=== PATIENT | female | born 1945 | race Caucasian/White ===

== ENCOUNTER → 2017-05-24 | Outpatient (CLI) | payer MEDICARE ==
[~2017-05-24] MED LIST: ACTOS 30 MG TAB30 MG; CIPROFLOXACIN500 M1 PO; GLUCOPHAGE500 MG; GLUCOTROL5 MG; LANTUS SC; LISINOPRIL40 MG; LOPRESSOR25; NORCO 5-325 TA1 EACH PO; PERCOCET 5-3251 EACH PO; PHENERGAN 25 MG25 M1 PO; VYTORIN 10-401 EACH; ZOFRAN ODT4 MG PO
== END ==
LOC: M.RAD 08:55
DX: Z12.31 Encounter for screening mammogram for malignant neoplasm of breast (principal)

== ENCOUNTER → 2017-06-03 | Outpatient (CLI) | payer MEDICARE | LOC: M.RAD 14:45 | DX: I51.7 Cardiomegaly (principal); J98.11 Atelectasis ==

== ENCOUNTER → 2017-11-09 | Outpatient (CLI) | payer MEDICARE | LOC: M.RAD 08:33 | DX: M85.89 Other specified disorders of bone density and structure, multiple sites (principal); I10 Essential (primary) hypertension; E11.9 Type 2 diabetes mellitus without complications; E78.5 Hyperlipidemia, unspecified; Z78.0 Asymptomatic menopausal state ==

== ENCOUNTER → 2018-05-23 | Outpatient (CLI) | payer OTHER | LOC: M.RAD 06:38 | DX: Z12.31 Encounter for screening mammogram for malignant neoplasm of breast (principal) ==

== ENCOUNTER 2019-06-01 00:24 | Observation (INO) | payer OTHER ==
[2019-06-01] VITALS (11 sets, daily range): BP systolic 142–224; BP diastolic 64–128
[~2019-06-01] VITALS: Ht 165.1 cm; Wt 83.6 kg
[2019-06-01] MEDS ORDERED: GLIPIZIDE 10 MG10 MG PO (01:11)
[2019-06-01] MEDS ORDERED: FENOFIBRATE150 MG PO (01:12)
[2019-06-01] MEDS ORDERED: CALCIUM + D3 E1 EACH PO (01:12)
[2019-06-01] MEDS ORDERED: ONE-A-DAY WOMENS PO (01:13)
[2019-06-01] MEDS ORDERED: LANTUS SUBQ (01:14)
[2019-06-01] MEDS ORDERED: PLAQUENIL200 MG PO (01:15)
[2019-06-01] MEDS ORDERED: METHOTREXATE 22.5 M1 PO (01:15)
[2019-06-01] MEDS ORDERED: NORVASC 2.5 MG2.5 M1 PO (01:16)
[2019-06-01] MEDS ORDERED: SULFASALAZINE500 M4 PO (01:16)
[2019-06-01] MEDS ORDERED: EZALLOR SPRINKL10 MG PO (01:17)
[2019-06-01 01:39] LABS: ABSOLUTE BASOPHILS 0.1 thou/uL (0.0-0.2); ABSOLUTE EOSINOPHILS 0.1 thou/uL (0.0-0.7); ABSOLUTE LYMPHOCYTES 1.3 thou/uL (0.8-5.3); ABSOLUTE MONOCYTES 0.8 thou/uL (0.0-1.2); ABSOLUTE NEUTROPHILS 5.5 thou/uL (1.6-8.1); BASOPHILS 0.8 %; EOSINOPHILS 0.6 %; HEMATOCRIT 35.6 % (37.0-47.0); HEMOGLOBIN 12.1 gm/dL (12.0-15.0); LYMPHOCYTES 16.7 %; MCH 34.7 pg (26.0-34.0); MCHC 34.1 g/dL (28.0-37.0); MCV 101.7 fL (80.0-100.0); MONOCYTES 10.4 %; MPV 9.2 fl. (7.2-11.1); NUCLEATED RBCS 0 /100WBC; PLATELET COUNT* 260 thou/uL (150-400); POLYS 71.5 %; RDW-CV 13.9 % (10.5-14.5); WBC 7.7 thou/uL (4.0-11.0)
[2019-06-01 01:45] LABS: CALCIUM 9.3 mg/dL (8.5-10.1); CREATININE 0.8 mg/dL (0.6-1.3); INR 1.2; POTASSIUM 3.4 mmol/L (3.5-5.1); PROTIME 11.9 Seconds (9.20-11.50)
[2019-06-01 01:55] LABS: ALBUMIN 3.8 g/dL (3.4-5.0); TOTAL BILIRUBIN 0.5 mg/dL (<0.1-1.0); TOTAL PROTEIN 6.9 g/dL (6.4-8.2)
[2019-06-01 02:23] LABS: URINE BILIRUBIN NEGATIVE (Negative); URINE BLOOD NEGATIVE (Negative); URINE CLARITY CLEAR; URINE COLOR YELLOW; URINE GLUCOSE-RANDOM NEGATIVE (Negative); URINE KETONES NEGATIVE (Negative); URINE LEUKOCYTES-REFLEX NEGATIVE (Negative); URINE NITRITE-REFLEX NEGATIVE (Negative); URINE PROTEIN 1+ (Negative); URINE SPECIFIC GRAVITY 1.015 (1.005-1.030); URINE UROBILINOGEN 0.2 E.U./dl (0.2-1.0)
--- NOTE | 2019-06-01 06:30 | NUR ---
PATIENT ARRIVED ON UNIT AT APPROX 0330. ALERT AND ORIENTED TIMES FOUR. SOME DIZZINESS WITH MOVEMENT. INFORMED PATIENT OF CALL LIGHT AND TO USE IF SHE WAS WANTING TO TRANSFER. NO COMPLAINTS OF PAIN NOTED. NEUROSCIENCE SPECIALIST AND HOURLY ROUNDING COMLETED DOCUMENTED.
[2019-06-01 11:39] LABS: CHOLESTEROL 167 mg/dL (<200); HDL CHOLESTEROL 63 mg/dL (>40); LDL CHOLESTEROL 89 mg/dL (<100); TC:HDL 2.7 Ratio (Not establshd); TRIGLYCERIDE 77 mg/dL (<150); VLDL 15 mg/dL (<40)
[2019-06-01 11:40] LABS: SERUM ASSESSMENT Clear
--- NOTE | 2019-06-01 12:50 | EKG ---
[place] [address] ELECTROCARDIOGRAM REPORT Name: MEET LAM Room: [address] M.R.#: [id number] Admission: 06/01/19 Attend Phys: Bela Zimmer Discharge: Date of : 45 Date of Service: 06/01/19 0030 Report #: [id number] THIS REPORT FOR: //name// [facility] ED Test Date: 2019-06-01 Test Time: 00:30:53 Pat Name: MEET LAM Department: Room: [facility] Gender: F Field Supervisor: : 1945 Requested By: Tamie Owen Order Number: [id number] MD: Silver Meadows Measurements Intervals [place] Rate: 97 P: 51 WY: 220 QRS: 14 QRSD: 90 T: 108 QT: 333 QTc: 423 Interpretive Statements Sinus tachycardia Supraventricular bigeminy Prolonged [place] interval Inferior infarct, old Consider anterior infarct No previous ECG available for comparison Electronically Signed On 06-01-2019 12:49:32 CDT by Silver Meadows [email or web address] <ELECTRONICALLY SIGNED> By: Silver Meadows MD, FACC 06/01/19 1249 0030 0030 Silver Meadows MD, [facility] /EPI
--- NOTE | 2019-06-01 13:03 | 2DMMODE ---
[place] [address] 2 D/M-MODE ECHOCARDIOGRAM Name: MEET LAM Room: [address] M.R.#: [id number] Admission: 06/01/19 Attend Phys: Bela Zimmer Discharge: Date of : 45 Date of Service: 06/01/19 1302 Report #: [id number] THIS REPORT FOR: cc: Landen Sheppard MD, Matthew W. MD Holkins, John M. MD [facility] ~ APPROVED REPORT Study performed: 06/01/2019 10:51:43 EXAM: Comprehensive 2D, Doppler, and color-flow Echocardiogram Patient Location: In-Patient Room #: [facility] Status: routine BSA: 1.91 HR: 75 bpm BP: 189/93 mmHg Rhythm: NSR Other Information Study Quality: Good Indications CAD Hypertension/HDD 2D Dimensions IVSd: 13.83 (7-11mm) LVOT Diam: 19.63 (18-24mm) LVDd: 46.84 mm PWd: 11.84 (7-11mm) Ascending Ao: 31.87 (22-36mm) LVDs: 26.86 (25-40mm) Aortic Root: 33.03 mm Volumes Left Atrial Volume (Systole) LA ESV Index: 28.50 mL/m2 Aortic Valve AoV Peak Luis Daniel.: 1.80 m/s AO Peak Gr.: 13.00 mmHg LVOT Max P.48 mmHg AO Mean Gr.: 7.17 mmHg LVOT Mean P.82 mmHg LVOT Max V: 1.17 m/s AO V2 VTI: 35.72 cm LVOT Mean V: 0.78 m/s CARLEE (VTI): 2.21 cm2 LVOT V1 VTI: 26.03 [place] [address] 2 D/M-MODE ECHOCARDIOGRAM Name: MEET LAM Room: [address] M.R.#: [id number] Admission: 06/01/19 Attend Phys: Bela Zimmer Discharge: Date of : 45 Date of Service: 06/01/19 1302 Report #: [id number] Bartholomew: 4.04 m/s2 AI PHT: 337.60 ms Mitral Valve E/A Ratio: 0.74 MV Decel. Time: 273.50 ms MV E Max Luis Daniel.: 0.66 m/s MV PHT: 79.31 ms MVA (PHT): 2.77 cm2 TDI E/Lateral E': 6.60 E/Medial E': 8.25 Medial E' Luis Daniel.: 0.08 m/s Lateral E' Luis Daniel.: 0.10 m/s Pulmonary Valve PV Peak Luis Daniel.: 1.23 m/s PV Peak Gr.: 6.04 mmHg Tricuspid Valve RAP Estimate: 5.00 mmHg TR Peak Gr.: 23.33 mmHg RVSP: 28.00 mmHg PA Pressure: 28.00 mmHg Left Ventricle The left ventricle is normal size. There is normal LV segmental wall motion. Mild concentric left ventricular hypertrophy. Left ventricular systolic function is normal. The left ventricular ejection fraction is within the normal range. LVEF is 60-65%. Grade I - abnormal relaxation pattern. Right Ventricle The right ventricle is normal size. The right ventricular systolic function is normal. Atria The left atrium size is normal. The right atrium size is normal. Aortic Valve Mild aortic valve sclerosis. Mild aortic regurgitation. There is no aortic valvular stenosis. Mitral Valve Mild mitral annular calcification. Trace mitral regurgitation. No evidence of mitral [place] [address] 2 D/M-MODE ECHOCARDIOGRAM Name: MEET LAM ANN Room: [address] M.R.#: [id number] Admission: 06/01/19 Attend Phys: Bela Zimmer Discharge: Date of : 45 Date of Service: 06/01/19 1302 Report #: [id number] Tricuspid Valve The tricuspid valve is normal in structure. Trace tricuspid regurgitation. No pulmonary hypertension. Pulmonic Valve The pulmonary valve is normal in structure. There is no pulmonic valvular regurgitation. Great Vessels The aortic root is normal in size. IVC is normal in size and collapses >50% with inspiration. Pericardium There is no pericardial effusion. <Conclusion> The left ventricle is normal size. Mild concentric left ventricular hypertrophy. Left ventricular systolic function is normal. The left ventricular ejection fraction is within the normal range. LVEF is 60-65%. Grade I - abnormal relaxation pattern. The right ventricle is normal size. The left atrium size is normal. Mild aortic valve sclerosis. Mild aortic regurgitation. There is no aortic valvular stenosis. Mild mitral annular calcification. Trace mitral regurgitation. No evidence of mitral valve stenosis. The tricuspid valve is normal in structure. IVC is normal in size and collapses >50% with inspiration. There is no pericardial effusion. There is normal LV segmental wall motion. <ELECTRONICALLY SIGNED> By: Silver Meadows MD, FACC 06/01/19 1302 1302 1302 Silver Meadows MD, FACC /INF
--- NOTE | 2019-06-01 16:05 | NUR ---
Pt is A&O. Normally active and independent. No DME. No hx of HH or SNF. Goal is to dc to her dtr's home for a few days. No needs anticipated.
[2019-06-02 04:10] VITALS: BP 148/51
[2019-06-02 04:17] LABS: CALCIUM 8.7 mg/dL (8.5-10.1); CREATININE 0.9 mg/dL (0.6-1.3); MAGNESIUM 1.7 mg/dL (1.8-2.4); POTASSIUM 3.8 mmol/L (3.5-5.1)
--- NOTE | 2019-06-02 07:24 | NUR ---
PT CARE ASSUMED AT 1930. SAT MAINTAINED IN RA. ALERT AND ORIENTED X4. DENIES PAIN AND SOB. CALL LIGHT WITHIN REACH AND BED IN LOW POSITION. HOURLY ROUNDING DONE FOR PT SAFETY.
[2019-06-02 07:51] VITALS: BP 141/58
[2019-06-02 07:53] VITALS: BP 139/69; BP 150/69
[2019-06-02] MEDS ORDERED: HYDRALAZINE 2525 MG PO (08:50)
[2019-06-02] MEDS ORDERED: CARVEDILOL12.5 MG PO (08:50)
[2019-06-02] MEDS ORDERED: ASPIR 8181 MG PO (08:50)
[2019-06-02] MEDS ORDERED: HYDROCHLOROTHIA25 M1 PO (08:50)
[2019-06-02 09:33] VITALS: BP 139/69
[2019-06-02 09:36] VITALS: BP 139/69
--- NOTE | 2019-06-02 12:04 | NUR ---
PT DC TO HOME WITH DAUGHTER AND NURSING STAFF BY WHEELCHAIR AT 1145. IV OUT. PT STABLE UP ON DISCHARGE. PAPER SCRIPTS AND DISCHARGE PAPER WORK GIVEN. PERSONAL ITEMS SENT WITH PT.
== END 2019-06-02 11:50 | disposition home or self-care (01) ==
LOC: M.ERS 00:24 → M.2W 02:46 → M.TBA-ER 02:46 → M.2W 02:46
PROVIDERS: Internal Medicine; Personal Emergency Response Attendant; Registered Nurse; ADMIT Internal Medicine
DX: R42 Dizziness and giddiness (principal); I10 Essential (primary) hypertension; I25.10 Atherosclerotic heart disease of native coronary artery without angina pectoris; E78.5 Hyperlipidemia, unspecified; E11.9 Type 2 diabetes mellitus without complications; I65.22 Occlusion and stenosis of left carotid artery; M19.90 Unspecified osteoarthritis, unspecified site; I16.0 Hypertensive urgency; E87.6 Hypokalemia

== ENCOUNTER 2019-06-11 20:50 | Inpatient (IN) | payer OTHER ==
[~2019-06-11] VITALS: Ht 165.1 cm; Wt 86.0 kg
[~2019-06-11 20:50] MED LIST changes: +ASPIR 8181 MG PO; +CALCIUM + D3 E1 EACH PO; +CARVEDILOL12.5 MG PO; +EZALLOR SPRINKL10 MG PO; +FENOFIBRATE150 MG PO; +GLIPIZIDE 10 MG10 MG PO; +HYDRALAZINE 2525 MG PO; +HYDROCHLOROTHIA25 M1 PO; +LANTUS SUBQ; +METHOTREXATE 22.5 M1 PO; +NORVASC 2.5 MG2.5 M1 PO; +ONE-A-DAY WOMENS PO; +PLAQUENIL200 MG PO; +SULFASALAZINE500 M4 PO
[2019-06-11 20:54] VITALS: BP 221/81
[2019-06-11 21:27] LABS: ABSOLUTE EOSINOPHILS 0.1 thou/uL (0.0-0.7); ABSOLUTE LYMPHOCYTES 1.7 thou/uL (0.8-5.3); ABSOLUTE MONOCYTES 0.7 thou/uL (0.0-1.2); BASOPHILS 0.5 %; EOSINOPHILS 0.8 %; HEMATOCRIT 36.3 % (37.0-47.0); HEMOGLOBIN 12.3 gm/dL (12.0-15.0); LYMPHOCYTES 19.6 %; MCH 34.3 pg (26.0-34.0); MCHC 33.8 g/dL (28.0-37.0); MCV 101.6 fL (80.0-100.0); MONOCYTES 8.6 %; MPV 9.2 fl. (7.2-11.1); NUCLEATED RBCS 0 /100WBC; PLATELET COUNT* 305 thou/uL (150-400); POLYS 70.5 %; RBC 3.57 mil/uL (4.20-5.00); RDW-CV 13.5 % (10.5-14.5); WBC 8.6 thou/uL (4.0-11.0)
[2019-06-11 21:29] LABS: CALCIUM 9.9 mg/dL (8.5-10.1); CREATININE 1.5 mg/dL (0.6-1.3); POTASSIUM 3.6 mmol/L (3.5-5.1)
[2019-06-11 21:31] LABS: INR 1.2
[2019-06-11 21:40] LABS: ALBUMIN 4.1 g/dL (3.4-5.0); MAGNESIUM 1.9 mg/dL (1.8-2.4); TOTAL BILIRUBIN 0.4 mg/dL (<0.1-1.0); TOTAL PROTEIN 7.6 g/dL (6.4-8.2)
[2019-06-11 23:41] VITALS: BP 162/70
[2019-06-11 23:45] VITALS: BP 193/62
[2019-06-12 04:34] VITALS: BP 105/44
--- NOTE | 2019-06-12 06:11 | NUR ---
RECEIVED REPORT FROM SENIOR MEDIA PLANNERANTHONY BRIGHT AT 2340. PT ARRIVED TO UNIT AT 2345. PT ORIENTED TO ROOM AND CALL LIGHT. NURSING ASSESSMENT COMPLETED. PT DENIES PAIN THIS SHIFT. CALL LIGHT WITHIN REACH. HIGH FALL PRECAUTIONS IN PLACE. HOURLY ROUNDING COMPLETED.
[2019-06-12 08:00] VITALS: BP 125/59
[2019-06-12 09:16] LABS: URINE BILIRUBIN NEGATIVE (Negative); URINE BLOOD NEGATIVE (Negative); URINE CLARITY CLEAR; URINE COLOR YELLOW; URINE GLUCOSE-RANDOM NEGATIVE (Negative); URINE KETONES NEGATIVE (Negative); URINE LEUKOCYTES-REFLEX NEGATIVE (Negative); URINE NITRITE-REFLEX POSITIVE (Negative); URINE PROTEIN NEGATIVE (Negative); URINE SPECIFIC GRAVITY 1.015 (1.005-1.030); URINE UROBILINOGEN 0.2 E.U./dl (0.2-1.0)
[2019-06-12 09:21] LABS: BACTERIA-REFLEX >30 Many /HPF (None Seen); CASTS None Seen /LPF (None Seen); CRYSTALS None Seen /LPF (None Seen); SQUAMOUS 0-3 Few /LPF (0-3); URINE RBC 0-2 Rare /HPF (0-2); URINE WBC-REFLEX 0-5 Rare /HPF (0-5)
--- NOTE | 2019-06-12 11:00 | EKG ---
[place] [address] ELECTROCARDIOGRAM REPORT Name: MEET LAM Room: [address] ADM IN [facility].#: [id number] Admission: 06/11/19 Attend Phys: Desmond Tapia Discharge: Date of : 45 Date of Service: 06/11/192105 Report #: [id number] THIS REPORT FOR: //name// [facility] ED Test Date: 2019-06-11 Test Time: 21:06:20 Pat Name: MEET LAM Department: Room: [facility] Gender: F Microbiology Laboratory Manager: : 1945 Requested By: Jaqueline Irene Order Number: [id number] MD: Silver Meadows Measurements Intervals [place] Rate: 78 P: -56 MA: 159 QRS: 10 QRSD: 116 T: 88 QT: 402 QTc: 458 Interpretive Statements Sinus or ectopic atrial rhythm LVH with IVCD and secondary repol abnrm Inferior infarct, old Compared to ECG 06/01/2019 00:30:53 Ectopic atrial rhythm now posssible Intraventricular conduction delay now present Left ventricular hypertrophy now present Early repolarization now present Sinus tachycardia no longer present Atrial premature complex(es) no longer present First degree AV block no longer present Myocardial infarct finding still present Electronically Signed On 06-12-2019 10:58:59 CDT by Silver Meadows [email or web address] <ELECTRONICALLY SIGNED> By: Silver Meadows MD, [facility] 06/12/19 1058 05 05 Silver Meadows MD, [facility] /EPI
[2019-06-12 11:30] VITALS: BP 106/47
--- NOTE | 2019-06-12 12:09 | NUR ---
ASSUMED PT CARE REPORT RECEIVED FROM NURSE. PT IS AOX4. ON RA. TRACING SR 1ST AV BLOCK ON GAS APPLIANCE ADJUSTER. CARB CONTROL DIET. PT HAS POOR APPETITE. THIS NURSE FED PT PART OF HER BREAKFAST THIS AM. PT OUT OF BED AND WALKED ON HALLWAY WITH THIS NURSE. THEN PT PLACED IN CHAIR FOR LUNCH. ACCUCHECK. BLOOD SUGAR LEVEL [address] NOTIFIED. D5 1/2 NS STOPPED AND NS STARTED. VSS. BLOOD PRESSURE TO BE CHECKED AT 1300 ORDERED POST STOPPPING THE D5 1/2 NS. CALL LIGHT WITHIN REACH. DAVID CONTINUE TO MONITOR PT
--- NOTE | 2019-06-12 15:02 | NUR ---
Pt is A&O. Known to this CM from previous hospital stay earlier this month. Pt states that she dc to her daughter's home, went home for a few days, but prior to this hospital stay was back staying with her dtr. Pt plans to return to her dtr's home at dc. No DME. No hx of HH or SNF, Pt declining HH at dc. Following for dispo.
[2019-06-12 16:00] VITALS: BP 151/64
[2019-06-12 21:00] VITALS: BP 107/56
[2019-06-13 00:09] VITALS: BP 153/69
[2019-06-13 02:07] LABS: GLYCOHEMOGLOBIN (HGB A1C) 4.6 % (4.8-5.6)
[2019-06-13 04:10] VITALS: BP 149/60
--- NOTE | 2019-06-13 05:59 | NUR ---
PATIENT SLEPT WELL THROUGHOUT MOST OF THE NIGHT. VSS ON RA. MEDICATIONS GIVEN ORDERED AND ASSESSMENT CHARTED. PATIENT UP WITH SBA WITH WALKER TO THE BATHROOM. IV IN RIGHT FOREARM-NS @ 100ML/HR. PATIENT INSTRUCTED TO USE CALL LIGHT WHEN NEEDING ASSISTANCE. HOURLY ROUNDS MADE. WILL CONTINUE WITH PLAN OF CARE AND NURSING TO MONITOR.
[2019-06-13 06:15] LABS: ABSOLUTE BASOPHILS 0.1 thou/uL (0.0-0.2); ABSOLUTE EOSINOPHILS 0.1 thou/uL (0.0-0.7); ABSOLUTE LYMPHOCYTES 2.5 thou/uL (0.8-5.3); ABSOLUTE MONOCYTES 0.7 thou/uL (0.0-1.2); ABSOLUTE NEUTROPHILS 2.8 thou/uL (1.6-8.1); EOSINOPHILS 1.2 %; HEMATOCRIT 29.2 % (37.0-47.0); MCH 34.9 pg (26.0-34.0); MCV 102.5 fL (80.0-100.0); MPV 9.2 fl. (7.2-11.1); NUCLEATED RBCS 0 /100WBC; PLATELET COUNT* 235 thou/uL (150-400); POLYS 45.8 %; RBC 2.85 mil/uL (4.20-5.00); RDW-CV 13.4 % (10.5-14.5); WBC 6.2 thou/uL (4.0-11.0)
[2019-06-13 06:21] LABS: HEMOGLOBIN 9.9 gm/dL (12.0-15.0)
[2019-06-13 06:24] LABS: CALCIUM 8.2 mg/dL (8.5-10.1); CREATININE 0.9 mg/dL (0.6-1.3); POTASSIUM 3.5 mmol/L (3.5-5.1)
[2019-06-13 07:36] LABS: C-PEPTIDE 2.8 ng/mL (1.1-4.4); INSULIN 11.7 uIU/mL (2.6-24.9)
[2019-06-13 07:52] VITALS: BP 121/73
[2019-06-13 12:11] VITALS: BP 130/43
[2019-06-13 16:27] VITALS: BP 183/89
--- NOTE | 2019-06-13 17:02 | NUR ---
ASSUMED PT CARE REPORT RECEIVED FROM NURSE. PT IS AOX4. ON RA. 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 ACCUCHECK ACHS . IV FLUID INFUSING AT 100 PER HOUR. IV ANTIBIOTICS HANGED. METFORMIN GIVEN AT LUNCH TIME DUE TO HIGH BLOOD SUGAR. BLOOD SUGAR TRENDING DOWN AT DINER TIME. WILL GIVE METFORMIN NEEDED. IV FLUID STOPPED AT ORDERED. SEE E APR. PT AMBULATED IN HALLWAY ACCOMPANIED BY THIS NURSE WITH STAND BY ASSISYT. DENIES PAIN. NO FURTHER COMPLAINT. PT HAS GOOD APPETITE. THIS NURSE SOPKE WITH PT'S DAUGHTER AND GAVE UPDATE. CALL LIGHT WITHIN REACH. WILL CONTINUE TO MONITOR PT
[2019-06-13 20:30] VITALS: BP 148/78
[2019-06-14] VITALS: BP 131/51
[2019-06-14 04:00] VITALS: BP 149/67
[2019-06-14 07:30] VITALS: BP 166/72
[2019-06-14 10:15] VITALS: BP 164/70
[2019-06-14] MEDS ORDERED: MACROBID 100 M100 M2 PO (11:03)
[2019-06-14] MEDS ORDERED: METFORMIN HCL500 M3 PO (11:04)
[2019-06-14] MEDS ORDERED: LEVO-T25 MCG PO (11:05)
[2019-06-14 11:10] VITALS: BP 164/70
[2019-06-14 11:58] VITALS: BP 164/70
--- NOTE | 2019-06-14 11:58 | NUR ---
PT GIVEN DISCHARGE INFORMATION, CARE NOTES, AND PRESCRIPTIONS. IV REMOVED. PT GIVEN CLOTHES TO GO HOME WITH. FALL RISK PRECAUTIONS IN PLACE. HOURLY ROUNDING COMPLETED. HEART MONITOR TAKEN OFF. BLOOD SUGAR CHECKED. PT LEFT VIA WHEELCHAIR WITH NURSING STAFF TO HOME WITH DAUGHTER.
== END 2019-06-14 11:59 | disposition home or self-care (01) | DRG 682 ==
LOC: M.ERS 20:50 → M.TBA-ER 22:27 → M.2W 22:27
PROVIDERS: Emergency Medicine; Internal Medicine; ADMIT Internal Medicine
DX: N17.9 Acute kidney failure, unspecified (principal); G93.41 Metabolic encephalopathy; N39.0 Urinary tract infection, site not specified; E11.649 Type 2 diabetes mellitus with hypoglycemia without coma; E86.0 Dehydration; E78.00 Pure hypercholesterolemia, unspecified; I25.10 Atherosclerotic heart disease of native coronary artery without angina pectoris; M13.80 Other specified arthritis, unspecified site; E03.9 Hypothyroidism, unspecified; D53.9 Nutritional anemia, unspecified; F50.89 Other specified eating disorder; Z95.1 Presence of aortocoronary bypass graft; Z79.899 Other long term (current) drug therapy; Z79.82 Long term (current) use of aspirin; Z79.84 Long term (current) use of oral hypoglycemic drugs; Z79.4 Long term (current) use of insulin; Z88.0 Allergy status to penicillin; Z68.31 Body mass index [BMI] 31.0-31.9, adult; Z87.891 Personal history of nicotine dependence

== ENCOUNTER → 2019-07-18 | Outpatient (CLI) | payer OTHER ==
[~2019-07-18] MED LIST changes: +LEVO-T25 MCG PO; +MACROBID 100 M100 M2 PO; +METFORMIN HCL500 M3 PO
== END ==
LOC: M.RAD 05-26 07:45
DX: Z12.31 Encounter for screening mammogram for malignant neoplasm of breast (principal)

== ENCOUNTER → 2019-09-20 | Outpatient (CLI) | payer OTHER ==
[2019-09-20 09:37] LABS: POTASSIUM 4.4 mmol/L (3.5-5.1)
== END ==
LOC: M.LAB 09:13
PROVIDERS: ATTEND Anesthesiology
DX: Z01.812 Encounter for preprocedural laboratory examination (principal); Z11.59 Encounter for screening for other viral diseases; E11.9 Type 2 diabetes mellitus without complications; R63.4 Abnormal weight loss; R63.0 Anorexia; E87.6 Hypokalemia

== ENCOUNTER → 2019-09-26 | Outpatient (CLI) | payer OTHER ==
[2019-09-26 07:51] LABS: POTASSIUM 4.3 mmol/L (3.5-5.1)
== END ==
LOC: M.LAB 07:19
PROVIDERS: ATTEND Anesthesiology
DX: E11.9 Type 2 diabetes mellitus without complications (principal); E87.6 Hypokalemia

== ENCOUNTER → 2019-10-05 | Outpatient (CLI) | payer OTHER ==
[2019-10-05 07:31] LABS: ALBUMIN 3.7 g/dL (3.4-5.0); CALCIUM 8.6 mg/dL (8.5-10.1); POTASSIUM 3.7 mmol/L (3.5-5.1); TOTAL BILIRUBIN 0.3 mg/dL (<0.1-1.0)
== END ==
LOC: M.LAB 06:53 → M.CT 08:00
PROVIDERS: ATTEND Internal Medicine Gastroenterology
DX: K57.30 Diverticulosis of large intestine without perforation or abscess without bleeding (principal); R63.4 Abnormal weight loss; M25.78 Osteophyte, vertebrae; I70.0 Atherosclerosis of aorta

== ENCOUNTER → 2019-10-11 | Outpatient (CLI) | payer OTHER ==
[~2019-10-11] MED LIST changes: +FOLIC ACID0.4 MG PO; +ZOCOR20 MG PO
== END ==
LOC: M.LAB 13:29
PROVIDERS: ATTEND Surgery Vascular Surgery
DX: Z01.812 Encounter for preprocedural laboratory examination (principal); Z11.59 Encounter for screening for other viral diseases; I65.22 Occlusion and stenosis of left carotid artery

== ENCOUNTER 2019-10-17 06:14 | Inpatient (IN) | payer OTHER ==
[~2019-10-17] VITALS: Ht 167.6 cm; Wt 83.5 kg
[2019-10-17] VITALS (17 sets, daily range): BP systolic 72–158; BP diastolic 26–89
[2019-10-17 06:52] LABS: HEMATOCRIT 31.7 % (37.0-47.0); HEMOGLOBIN 10.8 gm/dL (12.0-15.0); MCH 36.6 pg (26.0-34.0); MCHC 33.9 g/dL (28.0-37.0); MCV 107.9 fL (80.0-100.0); MPV 8.6 fl. (7.2-11.1); RBC 2.94 mil/uL (4.20-5.00); RDW-CV 13.8 % (10.5-14.5); WBC 7.3 thou/uL (4.0-11.0)
[2019-10-17 06:59] LABS: CALCIUM 9.4 mg/dL (8.5-10.1); POTASSIUM 3.6 mmol/L (3.5-5.1)
--- NOTE | 2019-10-17 09:39 | OP ---
[address] [address] OPERATIVE REPORT Name: MEET LAM Room: [address] IN M.R.#: [id number] Admission: 10/17/19 Attend Phys: Huey Murcia MD Discharge: Date of : 45 Report #: [id number] THIS REPORT FOR: //name// cc: Tra Sparks Reuel M. DO ~ THIS REPORT FOR: //name// CC: Tra Murcia DATE OF SERVICE: 10/17/2019 PREOPERATIVE DIAGNOSIS: Severe left internal carotid artery stenosis. POSTOPERATIVE DIAGNOSIS: Severe left internal carotid artery stenosis. PROCEDURES: 1. Left carotid endarterectomy with patch angioplasty. 2. Intraoperative ultrasound with interpretation. FINDINGS ON ULTRASOUND: 1. Normal waveform and velocity identified within the common and internal carotid arteries. 2. Patent flow identified on color flow imaging within the external carotid artery. 3. No flaps or defects identified in apple-scale imaging. SURGEON: Huey Murcia MD ELECTROCARDIOGRAPH OPERATOR: Dr. Swann, resident year 4. COMPLICATIONS: None. ESTIMATED BLOOD LOSS: 100 mL. SPECIMEN: Includes plaque. INDICATIONS FOR PROCEDURE: The patient is a very pleasant 74-year-old white female who has severe left internal carotid artery stenosis. We plan to proceed with carotid endarterectomy today. Informed consent was obtained from the patient with risks including but not limited to bleeding, pain, , heart attack, stroke, cranial nerve injury. The patient understood these risks and was agreeable to proceed. DESCRIPTION OF PROCEDURE: The patient was taken to the OR and placed in supine position. Left neck and chest were prepped and draped [place] [address] OPERATIVE REPORT Name: MEET LAM Room: [place] [address] ADM IN .R.#: [id number] Admission: 10/17/19 Attend Phys: Huey Murcia MD Discharge: Date of : 45 Report #: [id number] The patient received appropriate preoperative antibiotics. The patient was systemically heparinized throughout the critical portions of the procedure. I created a transverse incision in the patient's left neck. Sharp and blunt dissections were carried down along the anterior border of the sternocleidomastoid muscle. The facial veins were divided between ties and clips. The carotid sheath was entered. The common carotid artery as well as the branches of internal and external carotid artery were dissected out and controlled. I created a longitudinal arteriotomy from the common carotid artery onto the internal carotid artery. I placed a 10 shunt without difficulty. I performed endarterectomy in standard fashion using a Frierson elevator and a pair of pickups. We were able to get a feathered edge leading into the internal carotid artery. We performed eversion endarterectomy of the external carotid artery. We took our time to remove the bits and pieces of plaque from posterior wall. We closed the arteriotomy with a bovine pericardial patch and a running 6-0 Prolene suture. At the completion of the repair, there was adequate hemostasis and excellent blood flow into the internal and external carotid arteries. We performed intraoperative ultrasound. Please see the findings above. Irrigated the wound bed with antibiotic saline. I corrected the heparin with protamine. Controlled bleeding as needed with electrocautery, ties, clips and Sanket. We closed the wound in multiple layers using 2-0 Vicryl, 3-0 Vicryl and Monocryl for the skin. Incision was dressed with Dermabond. The patient was taken alert and awake to recovery room in good condition, neurologically intact. <ELECTRONICALLY SIGNED> By: Huey Murcia MD 10/17/19 0939 0922 0932Huey Murcia MD /nt
--- NOTE | 2019-10-17 15:30 | NUR ---
PT WANTING TO VOID BUT NOT ABLE TO. BLADDER SCAN REVEALED >513 MLS. MATA'S CATH INSERTED WITHOUT DIFFICULTY.
--- NOTE | 2019-10-17 18:30 | NUR ---
PT RECEIVED FROM PACU AT 1445, A&O x4. DOPAMINE SUPPORT CONTD, CURRENTLY AT 3 MCG/KG/MIN. VSS. DIET ADVANCED TO CARB CONTROLLED. TOLERATED WELL. ICE PACK APPLIED TO INCISION SITE, WHICH IS CLEAN, DRY AND INTACT. DENIES PAIN.
[2019-10-18] VITALS (16 sets, daily range): BP systolic 67–138; BP diastolic 45–71
[2019-10-18 04:21] LABS: HEMATOCRIT 25.4 % (37.0-47.0); MCH 36.4 pg (26.0-34.0); MCV 107.1 fL (80.0-100.0); MPV 8.6 fl. (7.2-11.1); RBC 2.38 mil/uL (4.20-5.00); RDW-CV 14.1 % (10.5-14.5)
[2019-10-18 04:49] LABS: POTASSIUM 3.5 mmol/L (3.5-5.1)
--- NOTE | 2019-10-18 04:49 | NUR ---
VITALS STABLE, AFEBRILE. PT COMPLAINS OF ACCESS SITE NECK PAIN, DENIES ANY OTHER PAIN. UNABLE TO TITRATE DOPAMINE OFF. OTHERWISE UNEVENTFUL NIGHT. Q2 TURNS FOR SKIN INTEGRITY. CALL LIGHT WITHIN REACH. WILL CONTINUE MONITORING.
[2019-10-18 04:52] LABS: HEMOGLOBIN 8.6 gm/dL (12.0-15.0)
--- NOTE | 2019-10-18 12:38 | NUR ---
Nutrition: Pt admitted with Lt carotid stenosis. Discharging home today. Consult for wt change. Spoke with RN. Pt mentioned some gradual wt loss. Per Rolith, usual wt has been ~164# since at least May. Current wt is 164#. Tolerating CHO controled diet. No concerns about wt loss at this time. Meds, PMHx, labs noted. Low risk.
--- NOTE | 2019-10-19 15:07 | PATH ---
[facility] [address] [place] [address] PATHOLOGY RPT PROCEDURE Name: MEET PATEL Room: [address] IN M.R.#: [id number] Admission: 10/17/19 Date of : 45 Discharge: 10/18/19 Report #: [id number] Path Case #: [id number] LCA Accession Number: [id number] . 01 Material submitted: . carotid body - CAROTID PLAQUE, LEFT. Modifiers: left . 01 Clinician provided ICD-10: I65.29 . 01 Clinical history: . LEFT CAROTID STENOSIS . 02 Diagnosis: Carotid plaque left: - Fibrointimal atherosclerotic plaque with calcification. (ARLIN:pit 10/19/2019) QTP 10/19/2019 1230 Local . 02 Electronically signed: . Dannie Hall MD, Pathologist NPI- [id number] . 01 Gross description: . The specimen is received in formalin, labeled "Meet Patel, carotid plaque left" and consists of a rubbery to calcified segment of yellow-jones tissue measuring 1.9 x 0.8 x 0.6 cm. The specimen displays a focally stenotic lumen and is entirely submitted in A1 following decalcification. (SDY; 10/18/2019) SYU/SYU 10/18/2019 1349 Local . 02 Pathologist provided ICD-10: I65.22 . 02 CPT . 294917, [id number] Specimen Comment: A courtesy copy of this report has been sent to [phone] Specimen Comment: 1974 Specimen Comment: Report sent to / DR DORAN Performed at: [address], [place], [place] [id number] MD Sahil Randall MD Phone: [phone] Performed at: [address] [place] [address] [address] [place], [place] [id number] MD Dannie Hall MD Phone: [phone]
== END 2019-10-18 14:11 | disposition home or self-care (01) | DRG 38 ==
LOC: M.TBA 06:14 → M.ICU 06:14 → M.PRE 09:26 → M.ICU 13:31
PROVIDERS: Surgery Vascular Surgery; ADMIT Internal Medicine; ATTEND Internal Medicine
DX: I65.22 Occlusion and stenosis of left carotid artery (principal); R71.0 Precipitous drop in hematocrit; E78.00 Pure hypercholesterolemia, unspecified; E11.9 Type 2 diabetes mellitus without complications; I25.10 Atherosclerotic heart disease of native coronary artery without angina pectoris; E78.5 Hyperlipidemia, unspecified; M06.9 Rheumatoid arthritis, unspecified; I95.9 Hypotension, unspecified; I10 Essential (primary) hypertension; E03.9 Hypothyroidism, unspecified; Z79.4 Long term (current) use of insulin; Z79.84 Long term (current) use of oral hypoglycemic drugs; Z79.899 Other long term (current) drug therapy; Z95.1 Presence of aortocoronary bypass graft; Z87.891 Personal history of nicotine dependence; Z88.0 Allergy status to penicillin

== ENCOUNTER 2020-01-25 15:06 | Emergency (ER) | payer OTHER ==
[~2020-01-25] VITALS: Ht 162.6 cm; Wt 73.0 kg
[2020-01-25] MEDS ORDERED: ROSUVASTATIN CA10 MG PO (15:17)
[2020-01-25 15:27] LABS: ABSOLUTE BASOPHILS 0.1 thou/uL (0.0-0.2); ABSOLUTE EOSINOPHILS 0.1 thou/uL (0.0-0.7); ABSOLUTE LYMPHOCYTES 1.5 thou/uL (0.8-5.3); ABSOLUTE MONOCYTES 0.9 thou/uL (0.0-1.2); ABSOLUTE NEUTROPHILS 4.1 thou/uL (1.6-8.1); BASOPHILS 0.9 %; EOSINOPHILS 1.3 %; HEMATOCRIT 33.7 % (37.0-47.0); HEMOGLOBIN 11.2 gm/dL (12.0-15.0); LYMPHOCYTES 23.2 %; MCH 35.3 pg (26.0-34.0); MCHC 33.3 g/dL (28.0-37.0); MCV 105.8 fL (80.0-100.0); MPV 8.3 fl. (7.2-11.1); NUCLEATED RBCS 0 /100WBC; PLATELET COUNT* 274 thou/uL (150-400); POLYS 61.6 %; RBC 3.18 mil/uL (4.20-5.00); RDW-CV 15.7 % (10.5-14.5); WBC 6.7 thou/uL (4.0-11.0)
[2020-01-25 15:34] LABS: CALCIUM 8.9 mg/dL (8.5-10.1); CREATININE 1.1 mg/dL (0.6-1.3); POTASSIUM 4.2 mmol/L (3.5-5.1)
[2020-01-25 15:38] LABS: INR 1.1; PROTIME 11.9 Seconds (9.20-11.50)
[2020-01-25 15:45] LABS: ALBUMIN 3.6 g/dL (3.4-5.0); TOTAL BILIRUBIN 0.3 mg/dL (<0.1-1.0); TOTAL PROTEIN 7.3 g/dL (6.4-8.2)
[2020-01-25 16:05] VITALS: BP 204/83
--- NOTE | 2020-01-27 11:31 | EKG ---
[place] [address] ELECTROCARDIOGRAM REPORT Name: MEET LAM Room: [facility]#: [id number] Admission: 01/25/20 Attend Phys: Discharge: 01/25/20 Date of : 45 Date of Service: 01/25/20 1518 Report #: [id number] THIS REPORT FOR: //name// [facility] ED Test Date: 2020-01-25 Test Time: 15:18:02 Pat Name: MEET LAM Department: Room: Gender: F Automation Test Engineer: JACINTO : 1945 Requested By: Ramirez Carrington Order Number: [id number] MD: Eladio Nation Measurements Intervals [place] Rate: 80 P: 104 WY: 165 QRS: 28 QRSD: 96 T: 51 QT: 398 QTc: 460 Interpretive Statements Sinus rhythm Anterior infarct, old Artifact in lead(s) I,II,III,aVR,aVL,aVF,V3 and baseline wander in lead(s) I,II,aVR Compared to ECG 06/11/2019 21:06:20 Left ventricular hypertrophy no longer present Myocardial infarct finding still present Electronically Signed On 01-27-2020 11:31:37 WATER TANKER DRIVER by Eladio Nation [email or web address] <ELECTRONICALLY SIGNED> By: Eladio Nation MD, FACC 01/27/20 1131 1518 Eladio Nation MD, FAC /EPI
== END 2020-01-25 16:05 | disposition home or self-care (01) ==
LOC: M.ERS 15:06
PROVIDERS: Family Medicine
DX: E11.649 Type 2 diabetes mellitus with hypoglycemia without coma (principal); E78.00 Pure hypercholesterolemia, unspecified; E11.9 Type 2 diabetes mellitus without complications; I10 Essential (primary) hypertension; E03.9 Hypothyroidism, unspecified; I25.10 Atherosclerotic heart disease of native coronary artery without angina pectoris; M06.9 Rheumatoid arthritis, unspecified; R79.1 Abnormal coagulation profile; Z79.899 Other long term (current) drug therapy; Z79.4 Long term (current) use of insulin; Z88.0 Allergy status to penicillin

== ENCOUNTER 2020-03-19 11:27 | Emergency (ER) | payer OTHER ==
[~2020-03-19] VITALS: Ht 167.6 cm; Wt 68.0 kg
[~2020-03-19 11:27] MED LIST changes: +ROSUVASTATIN CA10 MG PO
[2020-03-19] MEDS ORDERED: HYDROCHLOROTHIA25 M2 PO (11:41)
[2020-03-19] MEDS ORDERED: LISINOPRIL20 MG PO (11:42)
[2020-03-19] MEDS ORDERED: LEVO-T50 MCG PO (11:42)
[2020-03-19 12:08] LABS: ABSOLUTE EOSINOPHILS 0.1 thou/uL (0.0-0.7); ABSOLUTE LYMPHOCYTES 1.4 thou/uL (0.8-5.3); ABSOLUTE MONOCYTES 0.8 thou/uL (0.0-1.2); ABSOLUTE NEUTROPHILS 4.4 thou/uL (1.6-8.1); BASOPHILS 0.5 %; HEMOGLOBIN 10.4 gm/dL (12.0-15.0); LYMPHOCYTES 21.5 %; MCH 34.4 pg (26.0-34.0); MCHC 33.6 g/dL (28.0-37.0); MCV 102.3 fL (80.0-100.0); MONOCYTES 11.5 %; MPV 8.3 fl. (7.2-11.1); NUCLEATED RBCS 0 /100WBC; PLATELET COUNT* 394 thou/uL (150-400); POLYS 65.5 %; RBC 3.04 mil/uL (4.20-5.00); RDW-CV 12.7 % (10.5-14.5); WBC 6.7 thou/uL (4.0-11.0)
[2020-03-19 12:15] LABS: CALCIUM 9.8 mg/dL (8.5-10.1); CREATININE 1.3 mg/dL (0.6-1.3); POTASSIUM 4.1 mmol/L (3.5-5.1)
[2020-03-19 12:19] LABS: APTT 24.6 Seconds (25.0-31.3); INR 1.2; PROTIME 12.9 Seconds (9.20-11.50)
[2020-03-19 12:35] LABS: ALBUMIN 3.2 g/dL (3.4-5.0); TOTAL BILIRUBIN 0.5 mg/dL (<0.1-1.0); TOTAL PROTEIN 7.4 g/dL (6.4-8.2)
[2020-03-19] MEDS ORDERED: ZPAK PO (13:51)
[2020-03-19] MEDS ORDERED: DECADRON6 MG PO ×2 (13:51→14:35)
[2020-03-19 14:15] LABS: URINE BILIRUBIN NEGATIVE (Negative); URINE BLOOD NEGATIVE (Negative); URINE CLARITY CLEAR; URINE COLOR YELLOW; URINE GLUCOSE-RANDOM NEGATIVE (Negative); URINE KETONES NEGATIVE (Negative); URINE LEUKOCYTES-REFLEX NEGATIVE (Negative); URINE PROTEIN NEGATIVE (Negative); URINE SPECIFIC GRAVITY >= 1.030 (1.005-1.030); URINE UROBILINOGEN 0.2 E.U./dl (0.2-1.0)
[2020-03-19 14:26] LABS: CASTS None Seen /LPF (None Seen); CRYSTALS None Seen /LPF (None Seen); SQUAMOUS 0-3 Few /LPF (0-3); URINE NITRITE-REFLEX POSITIVE (Negative); URINE RBC 0-2 Rare /HPF (0-2); URINE WBC-REFLEX 0-5 Rare /HPF (0-5)
[2020-03-19] MEDS ORDERED: CEFDINIR300 MG PO (14:35)
--- NOTE | 2020-03-19 16:20 | EKG ---
[place] [address] ELECTROCARDIOGRAM REPORT Name: MEET LAM Room: [facility]#: [id number] Admission: 03/19/20 Attend Phys: Discharge: Date of : 45 Date of Service: 03/19/20 1204 Report #: [id number] THIS REPORT FOR: //name// [facility] ED Test Date: 2020-03-19 Test Time: 12:04:13 Pat Name: MEET LAM Department: Room: Gender: F Driller Brake Lining: : 1945 Requested By: Ramirez Carrington Order Number: [id number] MD: Eladio Nation Measurements Intervals [place] Rate: 75 P: 0 NV: 217 QRS: 27 QRSD: 99 T: 37 QT: 409 QTc: 457 Interpretive Statements Sinus rhythm Inferior infarct, old Anterior infarct, old Baseline wander in lead(s) V1 Compared to ECG 01/25/2020 15:18 Myocardial infarct finding still present Electronically Signed On 03-19-2020 16:20:43 PRODUCTION ARTIST by Eladio Nation [email or web address] <ELECTRONICALLY SIGNED> By: Eladio Nation MD, [facility] 03/19/20 1620 1204 1204 Eladio Nation MD, [facility] /EPI
[2020-03-19 16:29] VITALS: BP 138/60
== END 2020-03-19 16:30 | disposition home or self-care (01) ==
LOC: M.ERS 11:27
PROVIDERS: Family Medicine
DX: U07.1 COVID-19 (principal); R53.1 Weakness; N39.0 Urinary tract infection, site not specified; E78.00 Pure hypercholesterolemia, unspecified; E11.9 Type 2 diabetes mellitus without complications; I25.10 Atherosclerotic heart disease of native coronary artery without angina pectoris; M06.9 Rheumatoid arthritis, unspecified; I10 Essential (primary) hypertension; E03.9 Hypothyroidism, unspecified; Z88.0 Allergy status to penicillin; Z79.899 Other long term (current) drug therapy; Z95.5 Presence of coronary angioplasty implant and graft; Z79.82 Long term (current) use of aspirin

== ENCOUNTER → 2020-07-22 | Outpatient (CLI) | payer OTHER ==
[~2020-07-22] MED LIST changes: +CEFDINIR300 MG PO; +DECADRON6 MG PO; +HYDROCHLOROTHIA25 M2 PO; +LEVO-T50 MCG PO; +LISINOPRIL20 MG PO; +ZPAK PO
== END ==
LOC: M.RAD 08:34
PROVIDERS: ATTEND Physician Assistant
DX: Z12.31 Encounter for screening mammogram for malignant neoplasm of breast (principal); Z00.00 Encounter for general adult medical examination without abnormal findings; U07.1 COVID-19; M85.88 Other specified disorders of bone density and structure, other site; Z78.0 Asymptomatic menopausal state; E78.2 Mixed hyperlipidemia; E03.4 Atrophy of thyroid (acquired); I10 Essential (primary) hypertension; N18.31 Chronic kidney disease, stage 3a; I70.90 Unspecified atherosclerosis; I25.10 Atherosclerotic heart disease of native coronary artery without angina pectoris; E11.9 Type 2 diabetes mellitus without complications; M06.9 Rheumatoid arthritis, unspecified; F33.0 Major depressive disorder, recurrent, mild; D64.9 Anemia, unspecified

== ENCOUNTER 2020-11-12 06:50 | Emergency (ER) | payer OTHER ==
[~2020-11-12] VITALS: Ht 167.6 cm; Wt 72.6 kg
[2020-11-12 08:10] LABS: ABSOLUTE BASOPHILS 0.1 thou/uL (0.0-0.2); ABSOLUTE EOSINOPHILS 0.2 thou/uL (0.0-0.7); ABSOLUTE LYMPHOCYTES 2.2 thou/uL (0.8-5.3); ABSOLUTE MONOCYTES 0.9 thou/uL (0.0-1.2); ABSOLUTE NEUTROPHILS 3.6 thou/uL (1.6-8.1); BASOPHILS 1.2 %; EOSINOPHILS 2.2 %; HEMATOCRIT 34.4 % (37.0-47.0); HEMOGLOBIN 11.4 gm/dL (12.0-15.0); LYMPHOCYTES 31.5 %; MCH 33.6 pg (26.0-34.0); MCHC 33.2 g/dL (28.0-37.0); MCV 101.3 fL (80.0-100.0); MPV 9.4 fl. (7.2-11.1); NUCLEATED RBCS 0 /100WBC; PLATELET COUNT* 268 thou/uL (150-400); POLYS 52.1 %; RDW-CV 13.6 % (10.5-14.5)
[2020-11-12 08:35] LABS: CALCIUM 9.2 mg/dL (8.5-10.1); CREATININE 1.4 mg/dL (0.6-1.3); POTASSIUM 4.2 mmol/L (3.5-5.1)
[2020-11-12 08:39] LABS: TOTAL BILIRUBIN 0.4 mg/dL (<0.1-1.0)
--- NOTE | 2020-11-12 09:53 | EKG ---
[place] [address] ELECTROCARDIOGRAM REPORT Name: MEET LAM Room: [facility]#: [id number] Admission: 11/12/20 Attend Phys: Discharge: Date of : 45 Date of Service: 11/12/20 0808 Report #: [id number] THIS REPORT FOR: //name// [facility] ED Test Date: 2020-11-12 Test Time: 08:08:56 Pat Name: MEET LAM Department: Room: Gender: F Chain Maker: [facility] : 1945 Requested By: Ramirez Carrington Order Number: [id number] MD: Eladio Nation Measurements Intervals [place] Rate: 69 P: 116 [place]: 237 QRS: 12 QRSD: 97 T: 56 QT: 438 QTc: 470 Interpretive Statements Sinus rhythm Prolonged [place] interval Inferior infarct, old poor r wave progression Compared to ECG 03/19/2020 12:04:13 First degree AV block now present Myocardial infarct finding still present Electronically Signed On 11-12-2020 9:53:32 CDT by Eladio Nation [email or web address] <ELECTRONICALLY SIGNED> By: Eladio Nation MD, [facility] 11/12/20 0953 Eladio Nation MD, [facility] /EPI
[2020-11-12] MEDS ORDERED: CIPRO500 M1 PO (09:55)
[2020-11-12 10:02] VITALS: BP 124/68
== END 2020-11-12 10:03 | disposition home or self-care (01) ==
LOC: M.ERS 06:50
PROVIDERS: Family Medicine
DX: R19.7 Diarrhea, unspecified (principal); Z20.822 Contact with and (suspected) exposure to COVID-19; E78.00 Pure hypercholesterolemia, unspecified; E11.9 Type 2 diabetes mellitus without complications; I25.10 Atherosclerotic heart disease of native coronary artery without angina pectoris; I10 Essential (primary) hypertension; E03.9 Hypothyroidism, unspecified; M06.9 Rheumatoid arthritis, unspecified; Z79.4 Long term (current) use of insulin; Z79.899 Other long term (current) drug therapy; Z88.0 Allergy status to penicillin; Z87.891 Personal history of nicotine dependence